=== PATIENT | male | born 2000 | race American Indian/Alaskan Native ===

== ENCOUNTER 2018-11-04 12:15 | Emergency (ER) | payer SELFPAY ==
[2018-11-04] MEDS ORDERED: ULTRAM PO ONE (13:08)
[2018-11-04] MEDS ORDERED: ZOFRAN ODT PO ONE (13:08)
[2018-11-04 13:19] LABS: Bilirubin,Urine NEG (Negative); Blood,Urine LG (Negative); Color,Urine Yellow (Yellow); Mucus,Urine 2+ /HPF; Protein,Urine <15 mg/dL mg/dL (Negative); Urobilinogen,Urine < 2.0 mg/dL (<2.0)
[2018-11-04] MEDS ORDERED: PERCOCET 5/325 PO ONE (13:39)
[2018-11-04 13:42] LABS: RBC,Urine > 182.0 /HPF (0.0-6.0)
--- NOTE | 2018-11-04 14:15 | Cat Scan Report ---
CT ABDOMEN AND PELVIS WITHOUT CONTRAST HISTORY: right flank pain COMPARISON: None. TECHNIQUE: Axial CT images were obtained through the abdomen and pelvis without IV contrast. Sagittal and coronal reformatted images. All CT scans at this location are performed using CT dose reduction for ALARA by means of automated exposure control. FINDINGS: CT ABDOMEN: Lung Bases: Clear. Liver: No significant abnormality. Biliary: No significant abnormality. Spleen: No significant abnormality. Unenlarged. Pancreas: No significant abnormality. Adrenals: No significant abnormality. Kidneys: The kidneys are normal size, contour and position. There are 3 stones in the right kidney at the superior pole and inferior pole. No ureteral stones or hydronephrosis. No focal renal lesion. Th e bladder is partially empty but a 3 mm stone is identified within the bladder which may represent a recently passed stone. Lymphatics: No lymphadenopathy. Vasculature: No significant abnormality. Bowel/Peritoneum: No significant abnormality. No free air. No free fluid. CT PELVIS: : No significant abnormality. Osseous Structures: No significant abnormality. Additional Findings: None IMPRESSION: Right nephrolithiasis. No hydronephrosis. 3 mm bladder stone. Recently passed stone Signer Name: Pedro Solano Jr, MD Signed: 11/04/2018 2:11 PM Workstation Name: [id number]
--- NOTE | 2018-11-04 14:48 | Emergency Department Report ---
ED Abdominal Pain HPI - General Chief Complaint: Abdominal Pain Stated Complaint: BURNING WHEN URINE/LT SIDE PAIN Time Seen by Provider: 11/04/18 12:58 Source: patient Mode of arrival: Wheelchair Limitations: No Limitations - History of Present Illness Initial Comments: Patient is a 18-year-old -[place] male who has had some right-sided flank pain and dysuria for the past 2 days. Patient states pain started abruptly and worsened. Pain started in the right flank and is now in the right groin. Patient states is no pain with actual palpation of the testicles but he states is rating pain into the testicles. The patient's right flank pain is better than when the pain first began. Patient states this mild nausea but no vomiting as no fevers chills cough cold or congestion. Severity scale (0 -10): 0 - Related Data Previous Rx's Medication Instructions Recorded Last Taken Type Ibuprofen [Motrin 800 MG tab] 800 mg PO Q8HR PRN #10 tablet 11/04/18 Unknown Rx traMADol [Ultram] 50 mg PO Q6HR PRN #12 tablet 11/04/18 Unknown Rx Allergies Allergy/AdvReac Type Severity Reaction Status Date / Time No Known Allergies Allergy Unverified 11/04/18 12:16 ED Review of Systems ROS: Stated complaint: BURNING WHEN URINE/LT SIDE PAIN Other details as noted in HPI Comment: All other systems reviewed and negative ED Past Medical Hx - Past Medical History Previous Medical History?: No - Surgical History Past Surgical History?: No - Social History Smoking Status: Never Smoker Substance Use Type: None - Medications Home Medications: Home Medications Medication Instructions Recorded Confirmed Last Taken Type Ibuprofen [Motrin 800 MG tab] 800 mg PO Q8HR PRN #10 tablet 11/04/18 Unknown Rx traMADol [Ultram] 50 mg PO Q6HR PRN #12 tablet 11/04/18 Unknown Rx ED Physical Exam - General Limitations: No Limitations General appearance: alert, in no apparent distress - Head Head exam: Present: atraumatic, normocephalic - Eye Eye exam: Present: normal appearance, PERRL, EOMI - ENT ENT exam: Present: mucous membranes moist - Neck Neck exam: Present: normal inspection - Respiratory Respiratory exam: Present: normal lung sounds bilaterally. Absent: respiratory distress, wheezes, rales, rhonchi - Cardiovascular Cardiovascular Exam: Present: regular rate, normal rhythm. Absent: systolic murmur, diastolic murmur, rubs, gallop - GI/Abdominal GI/Abdominal exam: Present: soft, normal bowel sounds. Absent: distended, tenderness, guarding, rebound - Rectal Rectal exam: Present: deferred - Extremities Exam Extremities exam: Present: normal inspection - Back Exam Back exam: Present: normal inspection - Neurological Exam Neurological exam: Present: alert, oriented X3 - Psychiatric Psychiatric exam: Present: normal affect, normal mood - Skin Skin exam: Present: warm, dry, intact, normal color. Absent: rash ED Course Vital Signs 11/04/18 12:20 Temperature 97.8 F Pulse Rate 58 L Respiratory 20 Rate Blood Pressure 117/73 [Left] O2 Sat by Pulse 100 Oximetry ED Medical Decision Making - Lab Data Lab Results 11/04/18 Range/Units 12:50 Urine Color Yellow (Yellow) Urine Turbidity Clear (Clear) Urine pH 6.0 (5.0-7.0) Ur Specific [place] 1.019 (1.003-1.030) Urine Protein <15 mg/dl (Negative) mg/dL Urine Glucose (UA) Neg (Negative) mg/dL Urine Ketones Neg (Negative) mg/dL Urine Blood Lg (Negative) Urine Nitrite Neg (Negative) Urine Bilirubin Neg (Negative) Urine Urobilinogen < 2.0 (<2.0) mg/dL Ur Leukocyte Esterase Tr (Negative) Urine WBC (Auto) 7.0 H (0.0-6.0) /HPF Urine RBC (Auto) > 182.0 (0.0-6.0) /HPF U Epithel Cells (Auto) < 1.0 (0-13.0) /HPF Urine Mucus 2+ /HPF - Radiology Data [facility] [address] [place] [address] Cat Scan Report Signed Patient: SAHIL DIXON MR#: [id number] : 2000 Acct:[id number] Age/Sex: 18 / M ADM Date: 11/04/18 Loc: ED Attending Dr: Ordering Physician: MONSE COLBERT MD Date of Service: 11/04/18 Procedure(s): CT abdomen pelvis wo con Accession Number(s): [id number] cc: MONSE COLBERT MD CT ABDOMEN AND PELVIS WITHOUT CONTRAST HISTORY: right flank pain COMPARISON: None. TECHNIQUE: Axial CT images were obtained through the abdomen and pelvis without IV contrast. Sagittal and coronal reformatted images. All CT scans at this location are performed using CT dose reduction for ALARA by means of automated exposure control. FINDINGS: CT ABDOMEN: Lung Bases: Clear. Liver: No significant abnormality. Biliary: No significant abnormality. Spleen: No significant abnormality. Unenlarged. Pancreas: No significant abnormality. Adrenals: No significant abnormality. Kidneys: The kidneys are normal size, contour and position. There are 3 stones in the right kidney at the superior pole and inferior pole. No ureteral stones or hydronephrosis. No focal renal lesion. The bladder is partially empty but a 3 mm stone is identified within the bladder which may represent a recently passed stone. Lymphatics: No lymphadenopathy. Vasculature: No significant abnormality. Bowel/Peritoneum: No significant abnormality. No free air. No free fluid. CT PELVIS: : No significant abnormality. Osseous Structures: No significant abnormality. Additional Findings: None IMPRESSION: Right nephrolithiasis. No hydronephrosis. 3 mm bladder stone. Recently passed stone Signer Name: Pedro Solano Jr, MD Signed: 11/04/2018 2:11 PM Workstation Name: [id number] Transcribed By: TTR Dictated By: PEDRO SOLANO JR, MD Electronically Authenticated By: PEDRO SOLANO JR, MD Signed Date/Time: 11/04/18 1411 - Medical Decision Making Per the patient's CTs patient recently passed a stone likely here in the emergency department. Stone is in the urinary bladder. Patient's does have some improvement of his pain since he arrived as well. Patient will be discharged home with medications for symptomatic relief. Patient did have trach's leuk esterase in his urine. I accidentally left antibiotics off of his discharge packet however I was able to call in an antibiotic to the pharmacy he uses Critical care attestation.: If time is entered above; I have spent that time in minutes in the direct care of this critically ill patient, excluding procedure time. ED Disposition Clinical Impression: Kidney stone Disposition: DC-01 TO HOME OR SELFCARE Is pt being admited?: No Does the pt Need Aspirin: No Condition: Stable Instructions: Kidney Stones (ED) Referrals: IMMANUEL ARMANDO MD [Primary Care Provider] - 3-5 Days Time of Disposition: 15:20
[2018-11-04 14:58] VITALS: BP 125/74
== END 2018-11-04 14:56 | disposition home or self-care (01) ==
LOC: ED 12:15
DX: N20.0 Calculus of kidney (principal)
CPT/HCPCS: 74176; 81001; Q0162

== ENCOUNTER 2019-03-04 10:57 | Emergency (ER) | payer OTHER ==
[2019-03-04 11:36] VITALS: BP 135/64
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
[2019-03-04] MEDS ORDERED: ACETAMINOPHEN 325 MG TAB PO ONE (12:39)
[2019-03-04] MEDS ORDERED: CYCLOBENZAPRINE 10 MG TAB PO ONE (12:39)
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
== END 2019-03-04 14:28 | disposition home or self-care (01) ==
LOC: ED 10:57
DX: S16.1XXA Strain of muscle, fascia and tendon at neck level, initial encounter (principal); R51 Headache; V49.49XA Driver injured in collision with other motor vehicles in traffic accident, initial encounter; Y93.89 Activity, other specified; Y92.89 Other specified places as the place of occurrence of the external cause; Y99.8 Other external cause status
CPT/HCPCS: 70450

== ENCOUNTER 2019-04-10 07:33 | Emergency (ER) | payer SELFPAY ==
[2019-04-10 07:39] VITALS: BP 118/91
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
[2019-04-10] MEDS ORDERED: IBUPROFEN 600 MG TAB PO ONE (08:24)
[2019-04-10] MEDS: IBUPROFEN 600 MG TAB PO ONE ×2 (08:29→08:53)
--- NOTE | 2019-04-10 08:39 | Emergency Department Report ---
- General Chief Complaint: Upper Respiratory Infection Stated Complaint: FEVER Time Seen by Provider: 04/10/19 08:32 Source: patient Mode of arrival: Ambulatory Limitations: No Limitations - History of Present Illness Initial Comments: pt is a 18 yo male who presents to the ED with URI symptoms that began two weeks ago. he has associated productive cough, fever, rhinorrhea, congestion, headache, generalized body aches. he states initially he had N/V but that resolved several days ago. he denies any abd pain, CP, SOB, diarrhea. he denies any PMHx. no allergies to meds. non smoker, non drinker. no sick contact that he knows of. - Related Data Previous Rx's Medication Instructions Recorded Last Taken Type Ibuprofen [Motrin 800 MG tab] 800 mg PO Q8HR PRN #10 tablet 11/04/18 Unknown Rx Acetaminophen [Non-Aspirin Extra 500 mg PO Q6HR PRN #30 tablet 03/04/19 Unknown Rx Strength] Ibuprofen [Motrin] 600 mg PO Q8H PRN #30 tablet 03/04/19 Unknown Rx Doxycycline Hyclate [Doxycycline 100 mg PO Q12HR 7 Days #14 tab 04/10/19 Unknown Rx Hyclate TAB] guaiFENesin ER [Mucinex ER] 600 mg PO Q12H #14 tablet.er 04/10/19 Unknown Rx Allergies Allergy/AdvReac Type Severity Reaction Status Date / Time No Known Allergies Allergy Verified 04/10/19 08:28 ED Review of Systems ROS: Stated complaint: FEVER Other details as noted in HPI Comment: All other systems reviewed and negative ED Past Medical Hx - Past Medical History Previous Medical History?: No Hx Seizures: Yes - Surgical History Past Surgical History?: No - Social History Smoking Status: Never Smoker Substance Use Type: None - Medications Home Medications: Home Medications Medication Instructions Recorded Confirmed Last Taken Type Ibuprofen [Motrin 800 MG tab] 800 mg PO Q8HR PRN #10 tablet 11/04/18 Unknown Rx Acetaminophen [Non-Aspirin Extra 500 mg PO Q6HR PRN #30 tablet 03/04/19 Unknown Rx Strength] Ibuprofen [Motrin] 600 mg PO Q8H PRN #30 tablet 03/04/19 Unknown Rx Doxycycline Hyclate [Doxycycline 100 mg PO Q12HR 7 Days #14 tab 04/10/19 Unknown Rx Hyclate TAB] guaiFENesin ER [Mucinex ER] 600 mg PO Q12H #14 tablet.er 04/10/19 Unknown Rx ED Physical Exam - General Limitations: No Limitations General appearance: alert, in no apparent distress - Head Head exam: Present: atraumatic, normocephalic - Eye Eye exam: Present: normal appearance - ENT ENT exam: Present: mucous membranes moist - Respiratory Respiratory exam: Present: normal lung sounds bilaterally. Absent: respiratory distress, wheezes, rales, rhonchi, stridor, chest wall tenderness, accessory muscle use, decreased breath sounds, prolonged expiratory - Cardiovascular Cardiovascular Exam: Present: regular rate, normal rhythm, normal heart sounds. Absent: systolic murmur, diastolic murmur, rubs, gallop - Neurological Exam Neurological exam: Present: alert, oriented X3 - Psychiatric Psychiatric exam: Present: normal affect, normal mood - Skin Skin exam: Present: warm, dry ED Course Vital Signs 04/10/19 04/10/19 07:37 08:41 Temperature 99.1 F 99.0 F Pulse Rate 117 H 90 Respiratory 18 Rate Blood Pressure 118/91 O2 Sat by Pulse 98 Oximetry ED Medical Decision Making - Radiology Data Radiology results: report reviewed CXR: Slightly prominent left lower lobe markings. Probable segmental atelectasis. If fever is present early infiltrate could be considered. - Medical Decision Making pt is a 18 yo male who presents to the ED with URI symptoms that began two weeks ago. he has associated productive cough, fever, rhinorrhea, congestion, headache, generalized body aches. he states initially he had N/V but that resolved several days ago. he denies any abd pain, CP, SOB, diarrhea. he denies any PMHx. no allergies to meds. non smoker, non drinker. no sick contact that he knows of. initial vitals in triage with elevated HR which improved to normal upon repeat. on exam: breath sounds are clear bilaterally, without w/r/r. CXR: Slightly prominent left lower lobe markings. Probable segmental atelectasis. If fever is present early infiltrate could be considered. Symptoms could be related to a post influenza pneumonia. Patient will be started on doxycycline and Mucinex. Advised patient please take medication as prescribed. increase your fluid intake over the next several days. may take tylenol or ibuprofen over the counter for a fever or body aches. follow up with a primary care doctor in the next 2-3 days. return to the emergency room immediately for any new or worsening symptoms. - Differential Diagnosis PNA, URI, bronchitis, viral syndrome, influenza Critical care attestation.: If time is entered above; I have spent that time in minutes in the direct care of this critically ill patient, excluding procedure time. ED Disposition Clinical Impression: PNA (pneumonia) Qualifiers: Pneumonia type: due to unspecified organism Laterality: left Lung location: lower lobe of lung Qualified Code(s): J18.9 - Pneumonia, unspecified organism Disposition: DC-01 TO HOME OR SELFCARE Is pt being admited?: No Does the pt Need Aspirin: No Condition: Stable Instructions: Bacterial Pneumonia (ED) Additional Instructions: please take medication as prescribed. increase your fluid intake over the next several days. may take tylenol or ibuprofen over the counter for a fever or body aches. follow up with a primary care doctor in the next 2-3 days. return to the emergency room immediately for any new or worsening symptoms. Prescriptions: Doxycycline Hyclate [Doxycycline Hyclate TAB] 100 mg PO Q12HR 7 Days #14 tab guaiFENesin ER [Mucinex ER] 600 mg PO Q12H #14 tablet.er Referrals: JOSEFINA MARTELL MD [Staff Physician] - 3-5 Days Forms: Accompanied Note, Work/School Release Form(ED) Time of Disposition: 08:41 Print Language: LATVIAN
== END 2019-04-10 08:55 | disposition home or self-care (01) ==
LOC: ED 07:33
DX: J18.9 Pneumonia, unspecified organism (principal); Z79.899 Other long term (current) drug therapy
CPT/HCPCS: 71046